=== PATIENT | male | born 1995 | race Caucasian/White ===

== ENCOUNTER 2020-05-22 14:22 | Emergency (ER) | payer OTHER, SELFPAY ==
[~2020-05-22] VITALS: Ht 175.3 cm; Wt 108.9 kg
[2020-05-22 14:27] VITALS: Ht 175.3 cm; Wt 108.9 kg
[2020-05-22 15:33] VITALS: BP 149/81
== END 2020-05-22 15:33 | disposition home or self-care (01) ==
LOC: ED 14:22
DX: R10.9 Unspecified abdominal pain (principal); R51 Headache; M79.10 Myalgia, unspecified site; R19.7 Diarrhea, unspecified; Z20.828 Contact with and (suspected) exposure to other viral communicable diseases
CPT/HCPCS: U0003-CS